=== PATIENT | female | born 1970 | race Caucasian/White ===

== ENCOUNTER 2018-04-04 06:54 | Emergency (ER) | payer BC ==
[~2018-04-04] VITALS: Ht 162.6 cm; Wt 111.2 kg
[~2018-04-04 06:54] MED LIST: ASPIR 8181 M1 PO; CEPHALEXIN500 MG PO; CLINDAMYCIN HC300 MG PO; GLUCOCOM1 EACH MC; GLUCOMETER MC; IODOFLEX1 EACH TP; KEFLEX500 MG PO; LEVEMIR100 UNIT/2 SC; LISINOPRIL2.5 MG PO; METFORMIN HCL1000 MG PO; METFORMIN HCL500 MG PO; MOTRIN IB200 MG PO; NEOSPORIN + P14.2 GM TP; NEOSPORIN + P28.3 GM TP; NORCO 5/3251 TABLET PO; TEST STRIPS MC
[2018-04-04 07:34] LABS: BASOPHIL (%) 0.7 % (0-1); BASOPHIL COUNT 0.1 K/uL (0-0.1); EOSINOPHIL (%) 2.7 % (0-5); EOSINOPHIL COUNT 0.3 K/uL (0-0.3); HEMATOCRIT 38.4 % (36.0-46.0); HEMOGLOBIN 13.2 G/DL (11.9-15.5); IMMATURE GRANULOCYTE (%) 0.7 % (0.0-0.7); LYMPHOCYTE COUNT 2.1 K/uL (1.0-2.8); MCH 27.2 PG (29.0-34.0); MCHC 34.4 G/DL (30.0-36.0); MCV 79.2 FL (83-99); MONOCYTE COUNT 0.5 K/uL (0-0.8); NEUTROPHIL (%) 70.9 % (45-76); NEUTROPHIL COUNT 7.3 K/uL (1.8-6.4); PLATELET COUNT 345 K/uL (156-360); RBC DIS.WIDTH-CV 11.9 % (11.8-14.6); RBC DIS.WIDTH-SD 34.2 % (39-53); RED BLOOD COUNT 4.85 M/uL (3.80-5.20); WHITE BLOOD COUNT 10.2 K/uL (4.1-10.2)
[2018-04-04 08:03] LABS: CHLORIDE 97 MEQ/L (99-109); CREATININE 0.6 MG/DL (0.6-1.3); GFR ESTIMATE (CALCULATED) > 59 mL/min/; GLUCOSE 305 mg/dL (70-99); POTASSIUM 4.5 MEQ/L (3.7-5.4); SODIUM 132 MEQ/L (136-147); UREA NITROGEN (BUN) 14 mg/dL (9-23)
[2018-04-04 08:50] LABS: QUANTITATIVE HCG < 4.0 MIU/ML
[2018-04-04] MEDS ORDERED: METFORMIN HCL500 M4 PO (09:59)
[2018-04-04 10:25] VITALS: BP 113/72
== END 2018-04-04 10:35 | disposition left against medical advice (07) ==
LOC: EME 06:54
PROVIDERS: Emergency Medicine
DX: E11.621 Type 2 diabetes mellitus with foot ulcer (principal); L97.529 Non-pressure chronic ulcer of other part of left foot with unspecified severity; L03.116 Cellulitis of left lower limb; T38.3X6A Underdosing of insulin and oral hypoglycemic [antidiabetic] drugs, initial encounter; Z91.120 Patient's intentional underdosing of medication regimen due to financial hardship; F32.9 Major depressive disorder, single episode, unspecified
CPT/HCPCS: 73630; 80048; 83605; 84702; 85025; 87070; 87075; 87077; 87186; 87205; 93971; 99281; 99285; J0696